=== PATIENT | male | born 1980 | race Caucasian/White ===

== ENCOUNTER 2016-08-18 19:59 | Emergency (ER) | payer OTHER ==
[~2016-08-18] VITALS: Ht 180.3 cm; Wt 98.7 kg
[2016-08-18 20:00] VITALS: BP 132/65
[2016-08-18] MEDS ORDERED: COLC0.6T37 PO (20:19)
[2016-08-18] MEDS ORDERED: INDO50CA PO (20:19)
== END 2016-08-18 20:54 | disposition home or self-care (01) ==
LOC: ED 20:48
DX: L03.031 Cellulitis of right toe (principal)
CPT/HCPCS: 99283

== ENCOUNTER 2020-02-27 18:38 | Emergency (ER) | payer BC, OTHER ==
[~2020-02-27] VITALS: Ht 180.3 cm; Wt 106.0 kg
[~2020-02-27 18:38] MED LIST: COLC0.6T37 PO; INDO50CA15 PO
[2020-02-27 20:27] VITALS: BP 117/72
--- NOTE | 2020-02-27 20:43 | NUR ---
Patient given discharge instructions and they have confirmed that they understand the instructions. Patient ambulatory with steady gait.
== END 2020-02-27 20:45 | disposition home or self-care (01) ==
LOC: ED 20:39
DX: U07.1 COVID-19 (principal); J18.1 Lobar pneumonia, unspecified organism; M79.10 Myalgia, unspecified site; R05 Cough; R50.9 Fever, unspecified; R51.9 Headache, unspecified; R06.02 Shortness of breath
CPT/HCPCS: 71045; 87635; 93005; 99285